=== PATIENT | male | born 1960 | race Caucasian/White ===

== ENCOUNTER → 2018-08-25 | Outpatient (CLI) | payer OTHER ==
[~2018-08-25] MED LIST: DOXY100T PO
--- NOTE | 2018-08-25 16:42 | RAD ---
4 view right rib detail series and PA view chest x-ray Clinical indications: Right rib pain. No known injury. FINDINGS: No right rib cage fracture or lytic process is seen. Chest x-ray demonstrates no acute lung infiltrate or pleural effusion or pulmonary edema or pneumothorax. The heart size and mediastinum and pulmonary vasculature both mee are unremarkable. IMPRESSION: Unremarkable study. 2 view study of the left ankle: Left ankle pain. No known injury. FINDINGS: No acute fracture or dislocation or lytic process is seen. The mortise ankle joint is intact. Minimal spurring of the medial aspect of the tibiotalar joint compartment is seen. No significant joint effusion is seen radiographically. IMPRESSION: Minimal degenerative spurring of the medial aspect of the tibiotalar joint compartment. 2 view left foot study: Left foot pain. No known injury. FINDINGS: No acute fracture or dislocation or lytic process is seen. No significant arthritic change is evident. Small plantar spur of the calcaneus is seen. IMPRESSION: No acute fracture. Small plantar spur. Electronically signed by: Alex Mcdonough MD (08/25/2018 4:39 PM) [facility]
== END | disposition home or self-care (01) ==
LOC: PMG 11:40
PROVIDERS: ATTEND Registered Nurse
DX: M77.32 Calcaneal spur, left foot (principal); R07.81 Pleurodynia
CPT/HCPCS: 71101; 73600; 73620

== ENCOUNTER 2018-10-21 11:18 | Emergency (ER) | payer OTHER ==
[~2018-10-21] VITALS: Ht 175.3 cm; Wt 88.5 kg
[2018-10-21 11:25] VITALS: BP 123/81
[2018-10-21] MEDS ORDERED: DOXY100T PO (11:39)
--- NOTE | 2018-10-21 11:39 | PHYS DOC ---
Past History Past Medical History: No Pertinent History Past Surgical History: No Surgical History Smoking: Non-smoker Alcohol Use: None Drug Use: None Adult General Chief Complaint Chief Complaint: INSECT BITE HPI HPI Patient is a 57-year-old male presents post removing a tick from his left thigh several days ago. Take may have been attached for 5 days, he thought it was a scab initially and did not remove it. He now presents with a rash for the past several days that has been spreading from where the tick is attached. He denies any fever. Denies any rash on his palms or soles. Denies any difficulty breathing. Denies any purulent drainage. Patient denies any pain or itching. Nothing seems to make it better or worse.[] Review of Systems Review of Systems Constitutional: Denies fever or chills [] Eyes: Denies change in visual acuity, redness, or eye pain [] HENT: Denies nasal congestion or sore throat [] Respiratory: Denies cough or shortness of breath [] Cardiovascular: No chest pain or palpitations[] GI: Denies abdominal pain, nausea, vomiting, bloody stools or diarrhea [] : Denies dysuria or hematuria [] Musculoskeletal: Denies back pain or joint pain [] Integument: See history of present illness[] Neurologic: Denies headache, focal weakness or sensory changes [] Endocrine: Denies polyuria or polydipsia [] All other systems were reviewed and found to be within normal limits, except as documented in this note. Allergies Allergies Allergies Coded Allergies Type Severity Reaction Last Updated Verified No Known Drug Allergies 10/21/18 No Physical Exam Physical Exam Constitutional: Well developed, well nourished, no acute distress, non-toxic appearance. [] HENT: Normocephalic, atraumatic, bilateral external ears normal, oropharynx moist, no oral exudates, nose normal. [] Eyes: PERRLA, EOMI, conjunctiva normal, no discharge. [] Neck: Normal range of motion, no tenderness, supple, no stridor. [] Cardiovascular:Heart rate regular rhythm, no murmur [] Lungs & Thorax: Bilateral breath sounds clear to auscultation [] Abdomen: Not examined. [] Skin: Warm, dry, erythematous rash approximately 7 cm diameter left medial proximal thigh. No purulent drainage. No induration. No central clearing.. [] Back: No tenderness, no CVA tenderness. [] Extremities: No tenderness, no cyanosis, no clubbing, ROM intact, no edema. No rash on the palms or soles or wrists[] Neurologic: Alert and oriented X 3, normal motor function, normal sensory function, no focal deficits noted. [] Psychologic: Affect normal, judgement normal, mood normal. [] EKG EKG [] Radiology/Procedures Radiology/Procedures [] Course & Med Decision Making Course & Med Decision Making Pertinent Labs and Imaging studies reviewed. (See chart for details) Medical decision making: There is no evidence of [place] spotted fever. This may be Lyme disease without any central clearing at this time. May also be a cellulitis secondary to the break in the skin. We will cover for antibiotics that cover both Lyme as well as cellulitis. Discussed plan with patient who voiced understanding. All questions were answered. Patient was discharged in improved condition.[] Dragon Disclaimer Dragon Disclaimer This electronic medical record was generated, in whole or in part, using a voice recognition dictation system. Departure Departure: Impression: Primary Impression: Tick bite Disposition: HOME, SELF-CARE Condition: IMPROVED Referrals: [facility] (PCP) Follow-up in 2 days Patient Instructions: Lyme Disease, Wood Tick Bite Additional Instructions: Follow-up with your regular doctor in 2 days. Keep the area clean and dry. Take the antibiotics as prescribed. Return to the ER if worsening pain, difficulty breathing, purulent drainage, or any other concerns. Scripts Doxycycline Hyclate (DOXYCYCLINE HYCLATE) 100 Mg Tablet 1 TAB PO BID for tick bite, #20 TAB Prov: ANA VILLATORO DO 10/21/18 Problem Qualifiers Primary Impression: Tick bite Encounter type: initial encounter Qualified Codes: W57.XXXA - Bitten or stung by nonvenomous insect and other nonvenomous arthropods, initial encounter ANA VILLATORO DO October 21, 2018 11:39
== END 2018-10-21 11:47 | disposition home or self-care (01) ==
LOC: ER 11:18
DX: S70.362A Insect bite (nonvenomous), left thigh, initial encounter (principal); W57.XXXA Bitten or stung by nonvenomous insect and other nonvenomous arthropods, initial encounter; Y93.89 Activity, other specified; Y92.89 Other specified places as the place of occurrence of the external cause; Y99.8 Other external cause status
CPT/HCPCS: 99283